=== PATIENT | male | born 1955 | race Caucasian/White ===

== ENCOUNTER 2023-10-16 14:04 | Outpatient (AMB) | payer MEDICARE, SELFPAY ==
--- NOTE | 2023-10-16 14:11 | A.OFFPC_ITS ---
Vital Signs 10/16/23 14:18 10/16/23 14:39 Height 5 ft 8.31 in Weight 166 lb 6 oz BMI 25.1 BP 144/72 H 138/64 Blood Pressure Location Rt brachial Lt brachial Position Sitting Sitting Respiration 16 Pulse 62 Pulse Source Pulse Oximeter Temp 97.3 F Temp Source Oral Pulse Oximetry (%) 97 Oxygen Delivery Method Room Air Intake Visit Reasons: Establish Care transfer from [facility] Intake Note: New patient visit Allergies sulfadiazine Allergy (Severe, Verified 10/16/23 14:12) other Tobacco use date assessed: 10/16/23 Fall risk assessment: No Falls in past year Last assessed Fall Risk: 10/16/23 Dental Screening Dental Screen Date: 10/16/23 Did you have a dental visit in the last 12 months?: Yes Did you have a dental problem in the last 6 months where you did not have access to dental care?: No Was dental information given to patient?: No HPI HPI Comments History of Present Illness Details 68 year old male with a past medical his tory of type 2 diabetes, gout, hypertension, hyperlipidemia, gout presenting for follow up CV: On amlodipine, losartan, crestor. BP 138/64. Denies chest pain. Denies exertonal dyspnea Diabetes: On metformin 1500mg daily. Decreased from 2000mg daily. Eye exam is overdue. No low blood glucose MSK: uses tizanidine prn neck or back pain. Patient has issues with GERD/gastritis in the past. Previously on daily PPI. Was able to wean off. However recently had a few days of sensation of food getting stuck/throat irritation. He also notes some hoarsenss around the time. This resolved completely but has happened on a handful of occasions since stopping the PPI. Scheduled for colonoscopy in November CONSTITUTIONAL: Denies weight loss, fever and chills. HEENT: Denies changes in vision and hearing. RESPIRATORY: Denies SOB and cough. CV: Denies palpitations and CP GI: Denies abdominal pain, nausea, vomiting and diarrhea. : Denies dysuria and urinary frequency. MSK: Denies new myalgia and joint pain. SKIN: Denies rash and pruritus. NEUROLOGICAL: Denies headache PSYCHIATRIC: Denies recent changes in mood. PHYSICAL EXAM: GENERAL: Alert and oriented x 3. NAD EYES: EOMI. Anicteric. HENT: Moist mucous membranes. No scleral icterus. No cervical lymphadenopathy. LUNGS: Clear to auscultation bilaterally. CARDIOVASCULAR: Regular rate and rhythm. No murmur. No JVD. ABDOMEN: Soft, non-tender +bs EXTREMITIES: No edema. Non-tender. SKIN: No rashes or lesions. Warm. NEUROLOGIC: No focal neurological deficits. CN II-XII grossly intact PSYCHIATRIC: Cooperative. Appropriate mood and affect [facility] Medical History (Updated 10/18/23 @ 10:27 by Cat King MD) Type 2 diabetes mellitus HTN (hypertension) Hyperlipidemia Gout Diabetes Chills Family History (Updated 10/16/23 @ 14:43 by SMA Elizabeth) Mother HTN (hypertension) High cholesterol Lung cancer Father Psychiatric disorder Family/Other Cardiovascular disease AA (alcohol abuse) Social History Housing: House Patient Tobacco Use Status: Never used Tobacco e-Cigarette/Vaping Use: Never Used Second Hand Smoke Exposure: Yes service: No Current occupational status: employed Current occupation: [employer] Current occupational exposures/hazards: No Cognitive needs: No Hearing needs: No Vision needs: No Questionnaire PHQ-9 Over the last 2 weeks, how often have you been bothered by any of the following problems? 1. Little interest or pleasure in doing things: not at all 2. Feeling down, depressed, or hopeless: not at all 3. Trouble falling or staying asleep, or sleeping too much: not at all 4. Feeling tired or having little energy: not at all 5. Poor appetite or overeating: not at all 6. Feeling bad about yourself - or that you are a failure or have let yourself or your family down: not at all 7. Trouble concentrating on things, such as reading the newspaper or watching television: not at all 8. Moving or speaking so slowly that other people could have noticed. Or the opposite - being so fidgety or restless that you have been moving around a lot more than usual: not at all 9. Thoughts that you would be better off or of hurting yourself in some way: not at all Total score: 0 Depression Screening Interpretation: Negative (neg) Depression Screening Done: Yes [id number] - PHQ-9 Billing: Yes Source: Developed by Drs. Deepak Hoang, Kae Ulloa, Rudy Elmore and colleagues, with an educational marly from [employer]. Thrive Questionnaire Date Thrive assessed: 10/16/23 I am a: Patient What is your living situation today?: I have a steady place to live Within the past 12 months, did the food you bought not last and you didn't have the money to get more?: Never true Within the past 12 months, did you worry whether your food would run out before you got money to buy more?: Never true Do you have trouble paying for medicines?: No Do you have trouble getting transportation to medical appointments?: No Do you have trouble paying your heating and electricity bill?: No Do you have trouble taking care of your child, family member or friend?: No Do you have trouble with day-to-day activities such as bathing, preparing meals, shopping, managing finances, etc.?: No Are you currently unemployed and looking for a job?: No Are you interested in more education?: Yes Please select the resources that you would like help with: None THRIVE Score: 0 AUDIT C Alcohol Use Questionnaire (AUDIT-C) 1. How often do you have a drink containing alcohol?: Monthly or less 2. How many drinks containing alcohol do you have on a typical day when you are drinking?: 1 or 2 3. How often do you have six or more drinks on one occasion?: Never Total Score: 1 ELGIN-7 AMB Questionnaire ELGIN-7 Date ELGIN - 7 assessed: 10/16/23 Feeling nervous, anxious, or on edge: 0 = Not at all Not being able to stop or control worryin = Not at all Worrying too much about different things: 0 = Not at all Trouble relaxin = Not at all Being so restless that it is hard to sit still: 0 = Not at all Becoming easily annoyed or irritable: 0 = Not at all Feeling afraid as if something awful might happen: 0 = Not at all Total ELGIN-7 score (0-4 normal; 5-9 mild; 10-14 moderate; 15-21 severe): 0 Source: Developed by Kae Green, Rudy Elmore and colleagues, with an educational marly from [employer]. ELGIN-7 Assessment Billing ELGIN-7 Assessment Tool: ELGIN-7 Assessment 32611 Physical exam (Primary Care) Vital Signs: Last Vital Signs Temp 97.3 F 10/16/23 14:18 Pulse 62 10/16/23 14:18 Resp 16 10/16/23 14:18 BP 138/64 10/16/23 14:39 Pulse Ox 97 10/16/23 14:18 Oxygen Delivery Method Room Air 10/16/23 14:18 BMI result Body Mass Index 25.1 Tobacco/Smoking Status: Tobacco use Status Tobacco use date assessed 10/16/23 10/16/23 14:17 Patient Tobacco Use Status Never used Tobacco 10/16/23 14:17 e-Cigarette/Vaping Use Never Used 10/16/23 14:17 PHQ-9: PHQ-9 Score PHQ-9: Total score 0 10/16/23 14:41 Depression Screening Interpretation: Negative (neg) Thrive Assessment: Date of Thrive Assessment Date Thrive assessed 10/16/23 10/16/23 14:40 Assessment and Plan Assessment & Plan (1) Type 2 diabetes mellitus: Comment: Overdue eye exam Has been at goal. could consider further reducing metformin pending todays A1C Code(s): E11.9 - Type 2 diabetes mellitus without complications Qualifiers: Diabetes mellitus detention insulin use: without oil and gas field technician use Diabetes mellitus complication status: without complication Qualified Code(s): E11.9 - Type 2 diabetes mellitus without complications (2) HTN (hypertension): Code(s): I10 - Essential (primary) hypertension Qualifiers: Hypertension type: primary hypertension Qualified Code(s): I10 - Essential (primary) hypertension (3) Hyperlipidemia: Code(s): E78.5 - Hyperlipidemia, unspecified Qualifiers: Hyperlipidemia type: mixed hyperlipidemia Qualified Code(s): E78.2 - Mixed hyperlipidemia (4) Gout: Comment: Off colchicine. Has not had flare in quite some time Code(s): M10.9 - Gout, unspecified Qualifiers: Gout site: foot Gout etiology: unspecified cause Chronicity: chronic Laterality: unspecified laterality Qualified Code(s): M1A.0790 - Idiopathic chronic gout, unspecified ankle and foot, without tophus (tophi) (5) GERD (gastroesophageal reflux disease): Comment: Start PPI x one month. If symptoms recur do BID x one week then daily x one month. If more frequent or persist will refer for evaluation ent/gi Code(s): K21.9 - Gastro-esophageal reflux disease without esophagitis Qualifiers: Esophagitis presence: esophagitis presence not specified Qualified Code(s): K21.9 - Gastro-esophageal reflux disease without esophagitis Orders: Orders Hemoglobin A1c 10/16/23 E11.9 - Type 2 diabetes mellitus without complications Comprehensive Met. Panel 10/16/23 E11.9 - Type 2 diabetes mellitus without complications Comprehensive Met. Panel 5 Months E11.9 - Type 2 diabetes mellitus without complications, E78.5 - Hyperlipidemia, unspecified, Z12.5 - Encounter for screening for malignant neoplasm of prostate, Z13.0 - Encounter for screening for diseases of the blood and blood-forming organs and certain disorders involving the immune mechanism Microalbumin, Random (w Creat) 5 Months E11.9 - Type 2 diabetes mellitus without complications, E78.5 - Hyperlipidemia, unspecified, Z12.5 - Encounter for screening for malignant neoplasm of prostate, Z13.0 - Encounter for screening for diseases of the blood and blood-forming organs and certain disorders involving the immune mechanism Lipid Panel 5 Months E11.9 - Type 2 diabetes mellitus without complications, E78.5 - Hyperlipidemia, unspecified, Z12.5 - Encounter for screening for malignant neoplasm of prostate, Z13.0 - Encounter for screening for diseases of the blood and blood-forming organs and certain disorders involving the immune mechanism Hemoglobin A1c 5 Months E11.9 - Type 2 diabetes mellitus without complications, E78.5 - Hyperlipidemia, unspecified, Z12.5 - Encounter for screening for malignant neoplasm of prostate, Z13.0 - Encounter for screening for diseases of the blood and blood-forming organs and certain disorders involving the immune mechanism Complete Blood Count Auto Diff 5 Months E11.9 - Type 2 diabetes mellitus without complications, E78.5 - Hyperlipidemia, unspecified, Z12.5 - Encounter for screening for malignant neoplasm of prostate, Z13.0 - Encounter for screening for diseases of the blood and blood-forming organs and certain disorders involving the immune mechanism Prostate Specific Antigen 5 Months E11.9 - Type 2 diabetes mellitus without complications, E78.5 - Hyperlipidemia, unspecified, Z12.5 - Encounter for screening for malignant neoplasm of prostate, Z13.0 - Encounter for screening for diseases of the blood and blood-forming organs and certain disorders involving the immune mechanism Coding Level of Care Code Tele Est Pt Level 4 (02668) Complex EM visit Add On G2211 Diagnoses Type 2 diabetes mellitus without complication, without long-term current use of insulin E11.9 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: without oil and gas field technician use Diabetes mellitus complication status: without complication Primary hypertension I10 Hypertension type: primary hypertension Mixed hyperlipidemia E78.2 Hyperlipidemia type: mixed hyperlipidemia Chronic gout of foot, unspecified cause, unspecified laterality M1A.0790 Gout site: foot Gout etiology: unspecified cause Chronicity: chronic Laterality: unspecified laterality Gastroesophageal reflux disease, unspecified whether esophagitis present K21.9 Esophagitis presence: esophagitis presence not specified Additional Codes ELGIN-7 Assessment Billing - ELGIN-7 Assessment Tool: ELGIN-7 Assessment 24057 ([id number])
[2023-10-16 14:18] VITALS: BP 144/72; PULSE 62; RESP 16; TEMP 36.3; O2SAT 97; BMI 25.1
[2023-10-16 14:39] VITALS: BP 138/64
== END 2023-10-16 15:03 | disposition home or self-care (01) ==
PROVIDERS: PCP Internal Medicine; Visit Provider Internal Medicine
DX: E11.9 Type 2 diabetes mellitus without complications (principal); I10 Essential (primary) hypertension; E78.2 Mixed hyperlipidemia; M1A.0790 Idiopathic chronic gout, unspecified ankle and foot, without tophus (tophi); K21.9 Gastro-esophageal reflux disease without esophagitis
CPT/HCPCS: 99214; G2211

== ENCOUNTER 2023-10-16 15:11 | Outpatient (REF) | payer MEDICARE, SELFPAY ==
[2023-10-16 18:51] LABS: Alanine Aminotransferase 24 U/L (0-40); Albumin Level 4.7 g/dL (3.5-5.0); Alkaline Phosphatase 49 U/L (39-117); Anion Gap 16 (12-20); Aspartate Amino Transferase 25 U/L (5-37); Bilirubin Total 0.2 mg/dL (0.0-1.0); Blood Urea Nitrogen 24 mg/dL (9-16); Calcium 10.4 mg/dL (8.4-10.2); Carbon Dioxide 24 mmol/L (22-29); Chloride 105 mmol/L (96-108); Estimated Glomerular Filt Rate > 60; Glucose Random 98 mg/dL (60-115); Potassium 3.7 mmol/L (3.3-5.1); Sodium 141 mmol/L (135-145); Total Protein 7.3 g/dL (6.5-8.0)
[2023-10-17 07:39] LABS: Estimated Average Glucose 111 mg/dL; Hemoglobin A1c % 5.5 % (<6.0)
== END 2023-10-16 15:12 | disposition home or self-care (01) ==
LOC: HO.WFDLDS 15:11
PROVIDERS: Visit Provider Internal Medicine
DX: E11.9 Type 2 diabetes mellitus without complications (principal)
CPT/HCPCS: 36415; 80053; 83036

== ENCOUNTER 2024-01-28 09:03 | Outpatient (AMB) | payer MEDICARE, SELFPAY ==
--- NOTE | 2024-01-28 09:10 | A.OFFPC_ITS ---
Vital Signs 01/28/24 09:14 Height 5 ft 9.25 in Weight 167 lb BMI 24.5 BP 112/62 Blood Pressure Location Rt brachial Position Sitting Respiration 12 Pulse 58 Pulse Source Pulse Oximeter Pulse Oximetry (%) 98 Oxygen Delivery Method Room Air Intake Visit Reasons: Back pain Intake Note: Patient is here to discuss low back pain intermittent x7 years. [place] [facility] Technician Required: No Accompanied by: Spouse Allergies sulfadiazine Allergy (Severe, Verified 01/28/24 09:17) other Tobacco use date assessed: 10/16/23 Fall risk assessment: No Falls in past year Last assessed Fall Risk: 01/28/24 Dental Screening Dental Screen Date: 10/16/23 HPI HPI Comments History of Present Illness Details 68 year old male with a past medical his tory of type 2 diabetes, gout, hypertension, hyperlipidemia, gout presenting for follow up He reports his previously intermittent back flares have become more frequent. He is now having back pain chronically. It is difficult for him to go out and mow the lawn. It puts him out for a couple days. His legs sometimes feel weak. He has radiation of the back pain down both legs bilaterally. He does use tizanidine as need for neck and back pain CV: On amlodipine, losartan, crestor. BP .Denies chest pain. Denies exertonal dyspnea Diabetes: On metformin 1500mg daily. Decreased from 2000mg daily. Eye exam is overdue. No low blood glucose MSK: uses tizanidine prn neck or back pain. Patient has issues with GERD/gastritis in the past. Previously on daily PPI. Was able to wean off. However recently had a few days of sensation of food getting stuck/throat irritation. He also notes some hoarsenss around the time. This resolved completely but has happened on a handful of occasions since stopping the PPI. Scheduled for colonoscopy in November CONSTITUTIONAL: Denies weight loss, fever and chills. HEENT: Denies changes in vision and hearing. RESPIRATORY: Denies SOB and cough. CV: Denies palpitations and CP GI: Denies abdominal pain, nausea, vomiting and diarrhea. : Denies dysuria and urinary frequency. MSK: see hpi SKIN: Denies rash and pruritus. NEUROLOGICAL: Denies headache PSYCHIATRIC: Denies recent changes in mood. PHYSICAL EXAM: GENERAL: Alert and oriented x 3. NAD EYES: EOMI. Anicteric. HENT: Moist mucous membranes. No scleral icterus. No cervical lymphadenopathy. LUNGS: Clear to auscultation bilaterally. CARDIOVASCULAR: Regular rate and rhythm. No murmur. No JVD. ABDOMEN: Soft, non-tender +bs EXTREMITIES: No edema. Non-tender. MSK: Tender right paraspinal spasm. There is a palpable nodularity to the right of the spine SKIN: No rashes or lesions. Warm. NEUROLOGIC: No focal neurological deficits. CN II-XII grossly intact PSYCHIATRIC: Cooperative. Appropriate mood and affect [facility] Medical History (Updated 01/28/24 @ 09:30 by Cat King MD) Type 2 diabetes mellitus HTN (hypertension) Hyperlipidemia Gout Diabetes Chills Family History (Updated 10/16/23 @ 14:43 by SMA Elizabeth) Mother HTN (hypertension) High cholesterol Lung cancer Father Psychiatric disorder Family/Other Cardiovascular disease AA (alcohol abuse) Social History Housing: House Patient Tobacco Use Status: Never used Tobacco e-Cigarette/Vaping Use: Never Used Second Hand Smoke Exposure: Yes service: No Current occupational status: employed Current occupation: [employer] Current occupational exposures/hazards: No Cognitive needs: No Hearing needs: No Vision needs: No Questionnaire PHQ-9 Over the last 2 weeks, how often have you been bothered by any of the following problems? 1. Little interest or pleasure in doing things: not at all 2. Feeling down, depressed, or hopeless: not at all 3. Trouble falling or staying asleep, or sleeping too much: more than half the days 4. Feeling tired or having little energy: several days 5. Poor appetite or overeating: not at all 6. Feeling bad about yourself - or that you are a failure or have let yourself or your family down: not at all 7. Trouble concentrating on things, such as reading the newspaper or watching television: not at all 8. Moving or speaking so slowly that other people could have noticed. Or the opposite - being so fidgety or restless that you have been moving around a lot more than usual: not at all 9. Thoughts that you would be better off or of hurting yourself in some way: not at all Total score: 3 Source: Developed by Drs. Deepak Hoang, Kae Ulloa, Rudy Elmore and colleagues, with an educational marly from [employer]. Thrive Questionnaire Date Thrive assessed: 10/16/23 I am a: Patient What is your living situation today?: I have a steady place to live Within the past 12 months, did the food you bought not last and you didn't have the money to get more?: Never true Within the past 12 months, did you worry whether your food would run out before you got money to buy more?: Never true Do you have trouble paying for medicines?: No Do you have trouble getting transportation to medical appointments?: No Do you have trouble paying your heating and electricity bill?: No Do you have trouble taking care of your child, family member or friend?: No Do you have trouble with day-to-day activities such as bathing, preparing meals, shopping, managing finances, etc.?: No Are you currently unemployed and looking for a job?: No Are you interested in more education?: No Please select the resources that you would like help with: None Currently or been in a relationship where the following occur: No concerns reported THRIVE Score: 0 AUDIT C Alcohol Use Questionnaire (AUDIT-C) 1. How often do you have a drink containing alcohol?: Monthly or less 2. How many drinks containing alcohol do you have on a typical day when you are drinking?: 1 or 2 3. How often do you have six or more drinks on one occasion?: Never Total Score: 1 ELGIN-7 AMB Questionnaire ELGIN-7 Date ELGIN - 7 assessed: 10/16/23 Feeling nervous, anxious, or on edge: 0 = Not at all Not being able to stop or control worryin = Not at all Worrying too much about different things: 0 = Not at all Trouble relaxin = Several days Being so restless that it is hard to sit still: 1 = Several days Becoming easily annoyed or irritable: 0 = Not at all Feeling afraid as if something awful might happen: 0 = Not at all Total ELGIN-7 score (0-4 normal; 5-9 mild; 10-14 moderate; 15-21 severe): 2 Source: Developed by Drs. Deepak Hoang, Rudy Shultz Kroenke and colleagues, with an educational marly from [employer]. Physical exam (Primary Care) Vital Signs: Last Vital Signs Pulse 58 01/28/24 09:14 Resp 12 01/28/24 09:14 BP 112/62 01/28/24 09:14 Pulse Ox 98 01/28/24 09:14 Oxygen Delivery Method Room Air 01/28/24 09:14 BMI result Body Mass Index 24.5 Tobacco/Smoking Status: Tobacco use Status Tobacco use date assessed 10/16/23 01/28/24 09:18 Patient Tobacco Use Status Never used Tobacco 01/28/24 09:18 e-Cigarette/Vaping Use Never Used 01/28/24 09:18 PHQ-9: PHQ-9 Score PHQ-9: Total score 3 02/03/24 17:23 Thrive Assessment: Date of Thrive Assessment Date Thrive assessed 10/16/23 01/28/24 09:18 Currently or been in a relationship where the following occur: No concerns reported Assessment and Plan Assessment & Plan (1) Lumbar radiculopathy, chronic: Code(s): M54.16 - Radiculopathy, lumbar region Plan: Xray ordered. referral to PT Referral to physiatry Continue tizanidine prn (2) Low back pain: Code(s): M54.50 - Low back pain, unspecified Orders: Orders PT Evaluation and Treatment 01/28/24 M54.16 - Radiculopathy, lumbar region, M54.50 - Low back pain, unspecified XR lumbar spine 2-3V 01/28/24 M54.16 - Radiculopathy, lumbar region, M54.50 - Low back pain, unspecified Referrals Physiatry Referral M54.16 - Radiculopathy, lumbar region, M54.50 - Low back pain, unspecified Medications: New gabapentin 1-2 capsules orally 2 times a day; 180 caps 3RF 90 days Coding Level of Care Code Est Pt Level 4 (42791) Diagnoses Lumbar radiculopathy, chronic M54.16 Low back pain M54.50
[2024-01-28 09:14] VITALS: BP 112/62; PULSE 58; RESP 12; O2SAT 98; BMI 24.5
== END 2024-01-28 12:55 | disposition home or self-care (01) ==
PROVIDERS: PCP Internal Medicine; Visit Provider Internal Medicine
DX: M54.16 Radiculopathy, lumbar region (principal); M54.50 Low back pain, unspecified

== ENCOUNTER → 2024-01-28 09:03 | Outpatient (BNVA) | payer MEDICARE, SELFPAY | PROVIDERS: PCP Internal Medicine; Visit Provider Internal Medicine | DX: M54.16 Radiculopathy, lumbar region (principal); M54.50 Low back pain, unspecified | CPT/HCPCS: 99212 ==

== ENCOUNTER 2024-03-28 13:21 | Outpatient (REF) | payer MEDICARE, SELFPAY ==
[2024-03-28 17:42] LABS: MANUAL DIFF FLAG NO
[2024-03-28 18:06] LABS: Estimated Average Glucose 108 mg/dL; Hemoglobin A1C 115.6523 umol/L; Hemoglobin A1c % 5.4 % (<6.0); Total Hemoglobin (HGBA1C) 3208.7936 umol/L
[2024-03-28 18:07] LABS: Basophils Percent Auto 0.5 % (0-2); Eosinophils Absolute Auto 0.1 X10*3/uL (0.0-0.4); Eosinophils Percent Auto 1.8 % (0-4); Hematocrit 36.1 % (42.0-52.0); Hemoglobin 12.7 g/dl (14.0-18.0); Imm Gran Abs Auto 0.02 X10*3/uL (0.00-0.03); Imm Gran Pct Auto 0.3 % (0.0-0.4); Lymphocytes Absolute Auto 1.4 X10*3/uL (1.2-4.9); Lymphocytes Percent Auto 20.9 % (20-40); Mean Corpuscular HGB Conc 35.2 g/dl (31.0-36.0); Mean Corpuscular Hemoglobin 30.2 pg (27.0-33.0); Mean Corpuscular Volume 85.7 fL (80.0-98.0); Mean Platelet Volume 12.2 fL (9.4-12.4); Monocytes Absolute Auto 0.6 X10*3/uL (0.1-1.2); Monocytes Percent Auto 8.8 % (2-11); Neutrophils Absolute Auto 4.5 x10*3/uL (2.0-8.3); Neutrophils Percent Auto 67.7 % (45-73); Platelet Count 200 X10*3/uL (160-400); Red Blood Count 4.21 X10*6/uL (4.60-5.80); Red Cell Distribution Width 13.7 % (11.0-16.0); White Blood Count 6.6 X10*3/uL (4.8-10.8)
[2024-03-28 18:13] LABS: Alanine Aminotransferase 30 U/L (0-40); Albumin Level 4.9 g/dL (3.5-5.0); Alkaline Phosphatase 48 U/L (39-117); Anion Gap 13 (12-20); Aspartate Amino Transferase 32 U/L (5-37); Bilirubin Total 0.4 mg/dL (0.0-1.0); Blood Urea Nitrogen 16 mg/dL (9-16); Calcium 10.4 mg/dL (8.4-10.2); Carbon Dioxide 27 mmol/L (22-29); Chloride 105 mmol/L (96-108); Cholesterol 126 mg/dL (<200); Estimated Glomerular Filt Rate > 60; Glucose Random 87 mg/dL (60-115); HDL Cholesterol 45 mg/dL (>40); LDL Cholesterol Calculated 52 mg/dL (<100); Potassium 3.4 mmol/L (3.3-5.1); Sodium 142 mmol/L (135-145); Total Protein 7.4 g/dL (6.5-8.0); Triglycerides 149 mg/dL (<150)
[2024-03-28 18:29] LABS: Creatinine Urine 58.76 mg/dL
[2024-03-28 18:30] LABS: Prostate Specific Antigen 2.46 ng/mL (<0.05-4.0)
== END 2024-03-28 13:22 | disposition home or self-care (01) ==
LOC: HO.WFDLDS 13:21
PROVIDERS: Visit Provider Internal Medicine
DX: E11.9 Type 2 diabetes mellitus without complications (principal); E78.5 Hyperlipidemia, unspecified; Z13.0 Encounter for screening for diseases of the blood and blood-forming organs and certain disorders involving the immune mechanism; Z12.5 Encounter for screening for malignant neoplasm of prostate
CPT/HCPCS: 36415; 80053; 80061; 82043; 82570; 83036; 84153; 85025

== ENCOUNTER → 2024-04-01 15:46 | Outpatient (AMB) | payer MEDICARE, SELFPAY ==
--- NOTE | 2024-04-01 16:04 | MHC.PC.OV ---
Vital Signs 04/01/24 16:07 Height 5 ft 9.25 in Weight 174 lb 2 oz BMI 25.5 BP 134/72 Blood Pressure Location Lt brachial Position Sitting Pulse 64 Pulse Source Pulse Oximeter Pulse Oximetry (%) 96 Oxygen Delivery Method Room Air Intake Visit Reasons: PE Intake Note: Follow up Pathological Technician Required: No Allergies sulfadiazine Allergy (Severe, Verified 04/01/24 16:04) other Tobacco use date assessed: 10/16/23 Dental Screening Dental Screen Date: 10/16/23 HPI HPI Comments History of Present Illness Details 68 year old male with a past medical history of type 2 diabetes, gout, hypertension, hyperlipidemia, gout presenting for follow up. booked as physical wants to defer today CV: On amlodipine, losartan, crestor. BP is good. chest pain. Denies exertonal dyspnea Diabetes: On metformin 1500mg daily. Decreased from 2000mg daily. No low blood glucose. A1C is excellent. No high readings MSK: uses tizanidine prn neck or back pain. Following again with physiatry. At last visit He reports his previously intermittent back flares have become more frequent. He is now having back pain chronically. It is difficult for him to go out and mow the lawn. It puts him out for a couple days. His legs sometimes feel weak. He has radiation of the back pain down both legs bilaterally. GERD/gastritis-stable on PPI. Patients colonoscopy got cancelled and he was never called to reschedule ROS see HPI PHYSICAL EXAM: GENERAL: Alert and oriented x 3. NAD EYES: EOMI. Anicteric. HENT: Moist mucous membranes. No scleral icterus. No cervical lymphadenopathy. LUNGS: Clear to auscultation bilaterally. CARDIOVASCULAR: Regular rate and rhythm. No murmur. No JVD. ABDOMEN: Soft, non-tender +bs EXTREMITIES: No edema. Non-tender. MSK: Tender right paraspinal spasm. There is a palpable nodularity to the right of the spine SKIN: No rashes or lesions. Warm. NEUROLOGIC: No focal neurological deficits. CN II-XII grossly intact PSYCHIATRIC: Cooperative. Appropriate mood and affect [facility] Medical History Type 2 diabetes mellitus HTN (hypertension) Hyperlipidemia Gout Diabetes Chills Family History Mother HTN (hypertension) High cholesterol Lung cancer Father Psychiatric disorder Family/Other Cardiovascular disease AA (alcohol abuse) Social History Housing: House Alcohol intake: current Patient Tobacco Use Status: Never used Tobacco e-Cigarette/Vaping Use: Never Used Second Hand Smoke Exposure: Yes Use of substances other than those prescribed or required for medical reasons: No service: No Current occupational status: employed Current occupation: relocality Current occupational exposures/hazards: No Cognitive needs: No Hearing needs: No Vision needs: No Questionnaire Thrive Questionnaire Date Thrive assessed: 01/28/24 I am a: Patient What is your living situation today?: I have a steady place to live Within the past 12 months, did the food you bought not last and you didn't have the money to get more?: Never true Within the past 12 months, did you worry whether your food would run out before you got money to buy more?: Never true Do you have trouble paying for medicines?: No Do you have trouble getting transportation to medical appointments?: No Do you have trouble paying your heating and electricity bill?: No Do you have trouble taking care of your child, family member or friend?: No Do you have trouble with day-to-day activities such as bathing, preparing meals, shopping, managing finances, etc.?: No Are you currently unemployed and looking for a job?: No Are you interested in more education?: No Please select the resources that you would like help with: None Currently or been in a relationship where the following occur: No concerns reported THRIVE Score: 0 ELGIN-7 AMB Questionnaire ELGIN-7 Date ELGIN - 7 assessed: 10/16/23 Source: Developed by Drs. Deepak Hoang, Kae Ulloa, Rudy Elmore and colleagues, with an educational marly from [employer]. Physical exam (Primary Care) Vital Signs: Last Vital Signs Pulse 64 04/01/24 16:07 BP 134/72 04/01/24 16:07 Pulse Ox 96 04/01/24 16:07 Oxygen Delivery Method Room Air 04/01/24 16:07 BMI result Body Mass Index 25.5 Tobacco/Smoking Status: Tobacco use Status Tobacco use date assessed 10/16/23 04/01/24 16:06 Patient Tobacco Use Status Never used Tobacco 04/01/24 16:10 e-Cigarette/Vaping Use Never Used 04/01/24 16:10 Thrive Assessment: Date of Thrive Assessment Date Thrive assessed 01/28/24 04/01/24 16:06 Currently or been in a relationship where the following occur: No concerns reported Coding Level of Care Code Est Pt Level 4 (37666) Diagnoses Type 2 diabetes mellitus with diabetic microalbuminuria, without long-term current use of insulin E11.29; R80.9 Diabetes mellitus complication detail: with diabetic microalbuminuria Diabetes mellitus complication status: with kidney complications Diabetes mellitus care home insulin use: without terminal make up operator use Diabetes mellitus type: type 2 Lumbar radiculopathy, chronic M54.16 Gastroesophageal reflux disease, unspecified whether esophagitis present K21.9 Esophagitis presence: esophagitis presence not specified Assessment & Plan Assessment & Plan (1) Diabetes: Code(s): E11.9 - Type 2 diabetes mellitus without complications Category: Medical Qualifiers: Diabetes mellitus complication detail: with diabetic microalbuminuria Diabetes mellitus complication status: with kidney complications Diabetes mellitus care home insulin use: without care home use Diabetes mellitus type: type 2 Qualified Code(s): E11.29 - Type 2 diabetes mellitus with other diabetic kidney complication; R80.9 - Proteinuria, unspecified Plan: well controlled Decrease metformin to 500mg daily (2) Lumbar radiculopathy, chronic: Code(s): M54.16 - Radiculopathy, lumbar region Category: Medical Plan: stable. continue follow up with physiatry (3) GERD (gastroesophageal reflux disease): Code(s): K21.9 - Gastro-esophageal reflux disease without esophagitis Category: Medical Qualifiers: Esophagitis presence: esophagitis presence not specified Qualified Code(s): K21.9 - Gastro-esophageal reflux disease without esophagitis Plan: stable. continue prn PPI Orders: Orders Hemoglobin A1c 6 Months E11.9 - Type 2 diabetes mellitus without complications, M54.16 - Radiculopathy, lumbar region Complete Blood Count Auto Diff 6 Months E11.9 - Type 2 diabetes mellitus without complications, M54.16 - Radiculopathy, lumbar region Comprehensive Met. Panel 6 Months E11.9 - Type 2 diabetes mellitus without complications, M54.16 - Radiculopathy, lumbar region Vitamin B12 and Folate 6 Months E11.9 - Type 2 diabetes mellitus without complications, M54.16 - Radiculopathy, lumbar region Lipid Panel 6 Months E11.9 - Type 2 diabetes mellitus without complications, M54.16 - Radiculopathy, lumbar region Referrals Open Access Screening Colonoscopy Referral Z12.11 - Encounter for screening for malignant neoplasm of colon, Z12.12 - Encounter for screening for malignant neoplasm of rectum Medications: Changed From metformin ER 1,500 mg (3 x 500 mg) PO DAILY 270 tabs 3RF To metformin ER 500 mg PO DAILY 90 tabs 3RF 90 days
[2024-04-01 16:07] VITALS: BP 134/72; PULSE 64; O2SAT 96; BMI 25.5
== END ==
PROVIDERS: PCP Internal Medicine; Visit Provider Internal Medicine
DX: E11.29 Type 2 diabetes mellitus with other diabetic kidney complication (principal); R80.9 Proteinuria, unspecified; M54.16 Radiculopathy, lumbar region; K21.9 Gastro-esophageal reflux disease without esophagitis

== ENCOUNTER → 2024-04-01 15:46 | Outpatient (BNVA) | payer MEDICARE, SELFPAY | PROVIDERS: PCP Internal Medicine; Visit Provider Internal Medicine | DX: E11.29 Type 2 diabetes mellitus with other diabetic kidney complication (principal); R80.9 Proteinuria, unspecified; M54.16 Radiculopathy, lumbar region; K21.9 Gastro-esophageal reflux disease without esophagitis; Z79.84 Long term (current) use of oral hypoglycemic drugs | CPT/HCPCS: 99212 ==